=== PATIENT | male | born 1965 | race Two or more races ===

== ENCOUNTER 2016-08-27 13:16 | Emergency (ER) | payer MEDICAID ==
[~2016-08-27] VITALS: Ht 167.6 cm; Wt 83.9 kg
[2016-08-27 14:21] VITALS: BP 137/96
[2016-08-27] MEDS ORDERED: cefTRIAXone SOD 1,000 MG VL IM ONE (16:00)
[2016-08-27] MEDS ORDERED: IBUPROFEN 800 MG TAB PO ONE (16:00)
== END 2016-08-27 16:23 | disposition home or self-care (01) ==
LOC: ER 13:16
DX: S61.210A Laceration without foreign body of right index finger without damage to nail, initial encounter (principal); B99.9 Unspecified infectious disease; F17.210 Nicotine dependence, cigarettes, uncomplicated; F15.10 Other stimulant abuse, uncomplicated; F12.10 Cannabis abuse, uncomplicated; W25.XXXA Contact with sharp glass, initial encounter; Y93.89 Activity, other specified; Y99.8 Other external cause status; Y92.89 Other specified places as the place of occurrence of the external cause
CPT/HCPCS: 73130; 96372; 99284; J0696

== ENCOUNTER 2017-07-16 09:01 | Emergency (ER) | payer MEDICAID ==
[~2017-07-16] VITALS: Ht 167.6 cm; Wt 90.7 kg
[2017-07-16 09:12] VITALS: BP 142/107
[2017-07-16] MEDS ORDERED: KETOROLAC TROMETH 60MG/2ML VIAL IM ONE (09:45)
== END 2017-07-16 10:12 | disposition home or self-care (01) ==
LOC: ER 09:01
DX: S93.402A Sprain of unspecified ligament of left ankle, initial encounter (principal); S39.012A Strain of muscle, fascia and tendon of lower back, initial encounter; F17.210 Nicotine dependence, cigarettes, uncomplicated; W01.0XXA Fall on same level from slipping, tripping and stumbling without subsequent striking against object, initial encounter; Y93.01 Activity, walking, marching and hiking; Y92.89 Other specified places as the place of occurrence of the external cause; Y99.8 Other external cause status
CPT/HCPCS: 73610; 96372; 99284; J1885

== ENCOUNTER 2019-12-20 15:44 | Emergency (ER) | payer MEDICAID ==
[~2019-12-20] VITALS: Ht 167.6 cm; Wt 83.9 kg
[2019-12-20 16:01] VITALS: BP 124/87
[2019-12-20] MEDS ORDERED: KETOROLAC TROMETH 60MG/2ML VIAL IM ONE (16:30)
== END 2019-12-20 17:05 | disposition home or self-care (01) ==
LOC: ER 15:44
DX: M47.892 Other spondylosis, cervical region (principal); M50.30 Other cervical disc degeneration, unspecified cervical region
CPT/HCPCS: 72040; 96372; 99283; J1885

== ENCOUNTER → 2020-01-19 | Emergency (ER) | payer MEDICAID ==
[~2020-01-19] VITALS: Ht 167.6 cm; Wt 84.8 kg
[2020-01-19 11:49] VITALS: BP 100/73
== END | disposition left against medical advice (07) ==
LOC: ER 11:33
DX: R09.89 Other specified symptoms and signs involving the circulatory and respiratory systems (principal); M79.673 Pain in unspecified foot; Z53.21 Procedure and treatment not carried out due to patient leaving prior to being seen by health care provider; X58.XXXA Exposure to other specified factors, initial encounter; Y93.89 Activity, other specified; Y92.89 Other specified places as the place of occurrence of the external cause; Y99.8 Other external cause status

== ENCOUNTER 2020-03-07 14:11 | Emergency (ER) | payer MEDICAID ==
[~2020-03-07] VITALS: Ht 167.6 cm; Wt 83.9 kg
[2020-03-07 14:34] VITALS: BP 112/74
[2020-03-07] MEDS ORDERED: SODIUM CHLORIDE 0.9% 1,000 ML IV ONE ×2 (14:36)
[2020-03-07] MEDS ORDERED: PANTOPRAZOLE 40 MG/10 ML VIAL INJ IV ONE (14:45)
== END 2020-03-07 15:21 | disposition home or self-care (01) ==
LOC: ER 14:11
DX: S16.1XXA Strain of muscle, fascia and tendon at neck level, initial encounter (principal); E86.0 Dehydration; R05 Cough; X58.XXXA Exposure to other specified factors, initial encounter; Y93.89 Activity, other specified; Y92.89 Other specified places as the place of occurrence of the external cause; Y99.8 Other external cause status
CPT/HCPCS: 71045; 99283; J7030

== ENCOUNTER → 2021-05-22 | Emergency (ER) | payer MEDICAID ==
[~2021-05-22] VITALS: Ht 172.7 cm; Wt 83.9 kg
[2021-05-22 17:03] VITALS: BP 148/92
== END | disposition left against medical advice (07) ==
LOC: ER 17:01
DX: M54.50 Low back pain, unspecified (principal); Z53.21 Procedure and treatment not carried out due to patient leaving prior to being seen by health care provider

== ENCOUNTER 2021-08-05 16:21 | Emergency (ER) | payer MEDICAID ==
[~2021-08-05] VITALS: Ht 172.7 cm; Wt 81.6 kg
[2021-08-05] MEDS ORDERED: AZIT1POW PO (18:25)
[2021-08-05] MEDS ORDERED: METH4PAK PO (18:25)
[2021-08-05 18:37] VITALS: BP 102/75
== END 2021-08-05 18:39 | disposition home or self-care (01) ==
LOC: ER 16:25
DX: U07.1 COVID-19 (principal); J18.9 Pneumonia, unspecified organism
CPT/HCPCS: 36415; 71045; 87426